=== PATIENT | male | born 1995 | race Caucasian/White ===

== ENCOUNTER 2017-07-04 22:23 | Emergency (ER) | END 2017-07-05 04:00 | disposition home or self-care (01) ==

== ENCOUNTER 2018-09-02 11:12 | Emergency (ER) | payer OTHER ==
[~2018-09-02] VITALS: Ht 185.4 cm; Wt 90.0 kg
[~2018-09-02 11:12] MED LIST: ACET325T33 PO; CEPH-443 PO; HYDR25SU24 PR; IBUP-1542 PO; NAPR-985 PO
[2018-09-02 11:15] VITALS: BP 158/88; PULSE 92; RESP 18; Ht 185.4 cm; Wt 90.0 kg
[2018-09-02] MEDS ORDERED: NAPR-985 PO (11:37)
[2018-09-02] MEDS ORDERED: HC30CR25 TOP (11:37)
--- NOTE | 2018-09-02 13:28 | ERD ---
ER Documentation Chief Complaint Chief Complaint yaritza hand/fingers numb x 1 week, works as executive chef HPI 23-year-old male presenting with bilateral numbness to his hands x1 week. Patient states he wakes up in the morning with his hands numb. [id number]. Denies any medications. 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 Medical history is asthma. NKDA. Surgical history denies. Social history marijuana smoker ROS All systems reviewed and are negative except as per history of present illness. Medications Home Meds Active Scripts Naproxen* (Naprosyn*) 500 Mg Tablet, 500 MG PO BID PRN for PAIN AND/OR INFLAMMATION, #30 TAB Prov:DORIAN MCCOLLUM PA-C 09/02/18 Hydrocortisone* Topical (Hydrocortisone* Topical) 2.5%-28.3 Gm Cream..g., 1 APPLIC TOP BID, #1 TUB Prov:DORIAN MCCOLLUM PA-C 09/02/18 Cephalexin* (Keflex*) 500 Mg Capsule, 500 MG PO QID for 5 Days, CAP Prov:QUE MEJIAS NP 07/05/17 Ibuprofen* (Motrin*) 600 Mg Tab, 600 MG PO Q6H PRN for PAIN AND OR ELEVATED TEMP, #30 TAB Prov:QUE MEJIAS [employer] SOFTWARE ENGINEER 18 Acetaminophen* (Tylenol*) 325 Mg Tablet, 2 TAB PO Q8 PRN for PAIN AND OR ELEVATED TEMP, #20 TAB Prov:JUANCHO MURPHY DO 08/20/15 Naproxen* (Naprosyn*) 500 Mg Tablet, 500 MG PO BID PRN for PAIN AND/OR INFLAMMATION, #30 TAB Prov:HARJINDER MUPRHYRAM DO 08/20/15 Hydrocortisone Acetate* (Anusol-HC*) 25 Mg/Supp.rect Supp.rect, 1 SUPP [place] BID PRN for HEMORROID PAIN/ITCHING, #12 SUPP.RECT Prov:ADRIENNE HARTMANN 12/20/14 Allergies Allergies: Coded Allergies: No Known Allergy (Unverified , 08/20/15) PMhx/Soc History of Surgery: No Anesthesia Reaction: No Hx Neurological Disorder: No Hx Respiratory Disorders: Yes (ASTHMA) Hx Cardiac Disorders: No Hx Psychiatric Problems: No Hx Miscellaneous Medical Probl: No Hx Alcohol Use: Yes Hx Substance Use: Yes (MARIJUANA) Hx Tobacco Use: No Smoking Status: Never smoker FmHx Family History: No diabetes, No coronary disease, No other Physical Exam Vitals Vital Signs Date Temp Pulse Resp B/P (MAP) Pulse Ox O2 O2 Flow FiO2 Time Delivery Rate 09/02/18 98.1 92 18 158/88 99 11:15 (111) Physical Exam GENERAL: The patient is well-appearing, well-nourished, in no acute distress CHEST: Clear to auscultation bilaterally. There are no rales, wheezes or rhonchi. HEART: Regular rate and rhythm. No murmurs, clicks, rubs or gallops. No S3 or S4. EXTREMITIES: Positive Phalen's test. Normal range of motion of all digits of the right and left hand. Strength 5 out of 5. No swelling or erythema noted. NEUROLOGIC: Alert and oriented. Cranial nerves II through XII intact. Motor strength in all 4 extremities with 5 out of 5 strength. Sensation grossly intact. Normal speech and gait. Babinski negative. DTR 2+ throughout. SKIN: There is no apparent rash or petechiae. The skin is warm and dry. Procedures/MDM DM: 23-year-old male presenting with findings consistent with carpal tunnel. I have low suspicion for acute fracture dislocation. I have low suspicion for infectious process. I do not feel blood work or imaging is indicated. Patient is recommended to ice and relax the affected wrist and to wear her night braces. He is also discharged with supportive medications. All questions answered at discharge Departure Diagnosis: Primary Impression: Carpal tunnel syndrome Condition: Stable Patient Instructions: Atopic Dermatitis (Eczema), Carpal Tunnel Additional Instructions: FOLLOW UP WITH YOUR PRIMARY CARE PHYSICIAN TOMORROW.Return to this facility if you are not improving as expected. DORIAN MCCOLLUM PA-C Sep 02, 2018 13:28
== END 2018-09-02 12:21 | disposition home or self-care (01) ==
LOC: FTE 11:12
DX: G56.03 Carpal tunnel syndrome, bilateral upper limbs (principal); J45.909 Unspecified asthma, uncomplicated
CPT/HCPCS: 99282